=== PATIENT | male | born 1995 | race African-American/Black ===

== ENCOUNTER 2024-09-14 14:57 | Outpatient (AMB) | payer OTHER, SELFPAY ==
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
[2024-09-14 15:35] VITALS: BP 120/70; PULSE 65; RESP 16; TEMP 36.2; O2SAT 97; BMI 34.2
--- OUTSIDE RECORDS SUMMARY | 2024-09-14 16:13 | XMS_ITS ---
Author Organization [facility] Address [address] [place] [phone] Care Team Providers Care Auditor/Quality Name Role Phone No, PCP Primary Care Provider UnavailNori Serna Unavailable [phone] [facility], Nursing Unavailable [phone] REASON FOR VISIT OFFICE ; Intake Social History Sex Assigned At : Social History Observation Description Sex Assigned At Male Encounters Encounter Location Date Provider Diagnosis [address] [phone] 09/04/2024 Nursing [facility] Plan Of Treatment No Information Progress Notes * Elkin VORADOB: 1995 (29 yo M)Acc No.[id number]:09/04/2024 Progress Notes Patient:?Jonathan VORA Provider:?Mylene [facility] :1995???Age:29 Y???Sex:Male Keven e:09/04/2024 Address:[address] [place], [place] [phone] Pcp:PCP No Subjective: * Chief Complaints: * ???1. OFFICE ; Intake. * Medical History:? Objective: * Vitals:? Assessment: Plan: * Treatment: * Images: Billing Information: * Visit Code:? * Procedure Codes:? * Electronic signature of Yair [facility] on 09/14/2024 at 04:13 PM EDT Sign off status: Pending * Provider:?Provider [facility] Date:?09/04/2024 Generated for Sylvia garvey/Nahomy/eTransmitting on:?09/14/2024 04:13 PM EDT
== END 2024-09-14 16:29 | disposition home or self-care (01) ==
LOC: HO.HMCH 14:58
DX: S86.012D Strain of left Achilles tendon, subsequent encounter (principal)

== ENCOUNTER → 2024-09-14 14:57 | Outpatient (BNVA) | payer OTHER, SELFPAY | DX: S86.012D Strain of left Achilles tendon, subsequent encounter (principal); F41.9 Anxiety disorder, unspecified; X58.XXXD Exposure to other specified factors, subsequent encounter | CPT/HCPCS: 96127; 99202 ==

== ENCOUNTER 2024-11-19 09:24 | Outpatient (AMB) | payer OTHER, SELFPAY ==
--- OUTSIDE RECORDS SUMMARY | 2024-09-04 09:30 | XMS_ITS ---
Author Organization [facility] Address [address] [place] [phone] Care Team Providers Care Steam Bone Press Tender Name Role Phone NO, PCP Primary Care Provider Nori Pisano Unavailable [phone] [facility], Nursing Unavailable [phone] REASON FOR VISIT OFFICE ; Intake Social History Sex Assigned At : Social History Observation Description Sex Assigned At Male Encounters Encounter Location Date Provider Diagnosis [address] [phone] 09/04/[address] [facility] Plan Of Treatment No Information Progress Notes * Elkin VORADOB: 1995 (29 yo M)Acc No.[id number]:09/04/2024 Progress Notes Patient: Jeffrey SAWYER Elkin GRIMALDO Provider: Adrian hayes [facility] :1995 A ge:29 Y S ex:Male Date:09/04/2024 Address:[address] [place], [place] [phone] Pcp:PCP NO Subjective: * Chief Complaints: * 1 . OFFICE ; Intake. * Medical History: Objective: * Vitals: Assessment: Plan: * Treatment: * Images: Billing Information: * Visit Code: * Procedure Codes: * Electronic signature of Yair [facility] on 11/19/2024 at 09:49 AM EDT Sign off status: Pending * Provider: Adrian hayes [facility] Date: 09/04/2024 Generated for Sylvia garvey/Nahomy/eTransmsaturnino on: 0 11/19/2024 09:49 AM EDT
[2024-11-19 09:38] VITALS: BP 100/70; PULSE 66; RESP 18; TEMP 36.1; O2SAT 98; BMI 33.7
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
== END 2024-11-19 10:58 | disposition home or self-care (01) ==
DX: Z00.00 Encounter for general adult medical examination without abnormal findings (principal); S86.012D Strain of left Achilles tendon, subsequent encounter; K05.10 Chronic gingivitis, plaque induced

== ENCOUNTER → 2024-11-19 09:24 | Outpatient (BNVA) | payer OTHER, SELFPAY | DX: Z00.00 Encounter for general adult medical examination without abnormal findings (principal); K05.10 Chronic gingivitis, plaque induced; S86.012D Strain of left Achilles tendon, subsequent encounter; X58.XXXD Exposure to other specified factors, subsequent encounter; Z98.890 Other specified postprocedural states | CPT/HCPCS: 99395 ==

== ENCOUNTER 2025-03-09 17:27 | Emergency (ER) | payer OTHER, SELFPAY ==
--- OUTSIDE RECORDS SUMMARY | 2024-07-31 08:30 | XMS_ITS ---
Author Organization [facility] Address [address] [place] [phone] Care Team Providers Care Manager Client Service Name Role Phone NO, PCP Primary Care Provider [phone] Nori Pisano Unavailable [phone] [facility], Nursing Unavailable [phone] REASON FOR VISIT Office: Intake Social History Sex Assigned At : Social History Observation Description Sex Assigned At Male Encounters Encounter Location Date Provider Diagnosis [address] [phone] 07/31/2024 Nursing [facility] Plan Of Treatment No Information Progress Notes * Elkin VORADOB: 1995 (29 yo M)Acc No.[id number]:07/31/2024 Progress Notes Patient: Jeffrey SAWYER Elkin GRIMALDO Provider: Adrian hayes [facility] :1995 A ge:29 Y S ex:Male Date:07/31/2024 Address:[address] [place], [place] [id number] Pcp:PCP NO Subjective: * Chief Complaints: * 1 . Office: Intake. * Medical History: Objective: * Vitals: Assessment: Plan: * Treatment: * Images: Billing Information: * Visit Code: * Procedure Codes: * Electronic signature of Yair loving [facility] on 03/09/2025 at 07:43 PM EST Sign off status: Pending * Provider: Adrian hayes [facility] Date: 0 07/31/2024 Generated for Sylvia garvey/Nahomy/eTransmitting on: 1 05/09/2024 07:43 PM EST
--- OUTSIDE RECORDS SUMMARY | 2024-09-04 08:30 | XMS_ITS ---
Author Organization [facility] Address [address] [place] [id number] Care Team Providers Care Computer Instructor Name Role Phone NO, PCP Primary Care Provider Nori Pisano Unavailable [phone] [facility], Nursing Unavailable [phone] REASON FOR VISIT OFFICE ; Intake Social History Sex Assigned At : Social History Observation Description Sex Assigned At Male Encounters Encounter Location Date Provider Diagnosis [address] [address] 09/04/2024 Nursing [facility] Plan Of Treatment No Information Progress Notes * Elkin VORADOB: 1995 (29 yo M)Acc No.[id number]:09/04/2024 Progress Notes Patient: Jeffrey SAWYER Elkin GRIMALDO Provider: Adrian hayes [facility] :1995 A ge:29 Y S ex:Male Date:09/04/2024 Address:[address] [place], [place] [id number] Pcp:PCP NO Subjective: * Chief Complaints: * 1 . OFFICE ; Intake. * Medical History: Objective: * Vitals: Assessment: Plan: * Treatment: * Images: Billing Information: * Visit Code: * Procedure Codes: * Electronic signature of Yair [facility] on 03/09/2025 at 07:43 PM EST Sign off status: Pending * Provider: Adrian hayes [facility] Date: 0 09/04/2024 Generated for Sylvia garvey/Nahomy/eTransmitting on: 1 05/09/2024 07:43 PM EST
--- NOTE | ~2025-03-09 | XR_ITS ---
CLINICAL HISTORY: 5th finger hyperextended 3 views left 5th finger Comparison: None Findings: No fractures or dislocations. No significant arthritic change. No erosions. No radiopaque foreign body. Impression: 1. No fracture or dislocation. This document has been electronically signed by: Kin Rao MD on 03/09/2025 18:08:17
--- NOTE | 2025-03-09 17:39 | ED_ITS ---
HPI - General Adult General Chief complaint: Extremity Injury, Upper Stated complaint: ?L pinky dislocation Time Seen by Provider: 03/09/25 19:17 History of Present Illness ED Provider: Nataliia Hernandez [facility] narrative: 29-year-old male, primarily Jamaican-speaking, presents to the ED complaining of an injury to his left pinky there that occurred when he was doing chin ups. He reports that the entire finger bent backwards, and he took off a small piece of skin near the nailbed. He wants to ensure that his finger is not broken. Denies any painful range of motion, tingling or numbness in the finger. No fever, chills. No chest pain or pressure, shortness of breath or abdominal pain. Related Data Previous Rx's ?Medication ?Instructions ?Recorded acetaminophen 325 mg capsule 650 mg (2 x 325 mg) PO Q6 H PRN 09/20/24 pain #30 caps ibuprofen 600 mg tablet 600 mg PO TID PRN pain #30 t abs 09/20/24 amoxicillin 875 mg-potassium 1 tab PO BID 7 days #14 t abs 11/19/24 clavulanate 125 mg tablet Allergies Allergy/AdvReac Type Severity Reaction Status Date / Time No Known Allergies Allergy Verified 03/09/25 17:44 Review of Systems Review of Systems: ROS is otherwise negative unless mentioned in HPI. [facility] Past Medical History Surgical History History of elbow surgery Social History Social History Housing: Other ([facility]) Alcohol intake: current Alcohol intake frequency: a few times a month Patient Tobacco Use Status: Current everyday Tobacco user Tobacco use type: Cigarette Cigarette Packs Per Day: 0.25 Cigarettes Per Day: 3 e-Cigarette/Vaping Use: Never Used Second Hand Smoke Exposure: No Advance Directives: No Advance Directives Information Provided: No service: No Current occupational status: unemployed Cognitive needs: Yes (noam) Hearing needs: No Vision needs: No Physical Exam ED Exam Exam: Nursing notes and vital signs reviewed. Constitutional: Well-appearing, NAD. Alert. Oriented X3. ENT: Pharynx normal. Neck: Normal inspection. Neck supple. CVS: Pulses normal. Respiratory: No respiratory distress. Skin: Skin warm and dry. Normal skin color. Skin avulsion to left pinkie finger. Brisk capillary refill. Extremities: No lower extremity edema. Neuro: Oriented X 3. No motor deficit. Vital Signs: Vital Signs - 24 hr 03/09/25 17:43 03/09/25 20:01 Temperature 97.6 F 0 F L Pulse Rate 76 78 Respiratory Rate 18 18 Blood Pressure 118/82 102/65 Pulse Oximetry 98 98 Oxygen Delivery Method Room Air Room Air BMI result Body Mass Index 33.5 Course Course Course Narrative: This is a rapid medical exam performed by Luis Pendleton NP: Additional HPI, ROS, PE not included below will be deferred to primary provider. Patient is a 29 year old male presenting to the ED with complaint of left 5th finger pain. Was doing chin-ups and slipped, hyperexending and twisting his finger. Superficial skin avulsion to distal finger. Tdap not UTD. Plan: xray, Tdap Medical Decision Making Medical Decision Making MDM Narrative: Upon assessment, he appears well. There is a very minor skin avulsion to the pinky. Range of motion is intact. The x-ray shows no acute fracture, dislocation. However what he describes to me is that his entire finger bent backwards, he tugged on it, and it went back into place. I do have concern that he may have dislocated his finger and then relocated it prior to the ED. Therefore, I ordered for the patient to be placed in a finger splint and have him follow up outpatient with Orthopedics. CSM is intact, 2+ pulses. He is agreeable to plan of care. Instructions for [id number] Tylenol use provided. Return precautions discussed. Differential Diagnosis Differential Diagnoses: The differential diagnosis associated with the presentation includes Extra, dislocation, sprain Admission/Observation Consideration of admission/observation: Escalation of care including admission/observation considered (Not indicated) Independent Interpretation I performed an independent interpretation of an: Plain X-Ray Interpretation: I have reviewed the patient's imaging and agree with the radiologist's findings. Radiology Impression Discussion of test interpretation with radiology: I have reviewed the radiologist's reading. Radiologist Impression: Impression: 1. No fracture or dislocation. Independent Historian Clinical information obtained from an independent historian. History obtained from or confirmed by: Friend (at bedside) External Record Review None Social Determinants Patient?s care significantly limited by Social Determinants of Health including: Problems related to primary support group Discharge Plan Discharge Clinical Impression: Finger injury Qualifiers: Encounter type: initial encounter Laterality: left Qualified Code(s): S69.92XA - Unspecified injury of left wrist, hand and finger(s), initial encounter Patient Disposition: Home, Self-Care Instructions: Finger Sprain (ED) Additional Instructions: As we discussed, the x-ray shows no acute fracture. We placed you in a finger splint that can be worn for the next 1-2 days for pain. With any worsening complaints at any time, return to the ED for reassessment. Prescriptions: No Action ibuprofen 600 mg tablet 600 mg PO TID PRN (Reason: pain) Qty: 30 3RF acetaminophen 325 mg capsule 650 mg PO Q6H PRN (Reason: pain) Qty: 30 3RF amoxicillin-pot clavulanate 875-125 mg tablet 1 tab PO BID 7 Days Qty: 14 0RF Referrals: [facility] [Primary Care Provider, Medical] Interventions: ED Discharge Assessment Last Done: 03/09/25 20:01 Discharge Date/Time: 03/09/25 20:02 Print Language: Jamaican
[2025-03-09 17:43] VITALS: BP 118/82; PULSE 76; RESP 18; TEMP 36.4; O2SAT 98; BMI 33.5
--- OUTSIDE RECORDS SUMMARY | 2025-03-09 19:44 | XMS_ITS | Clinical Summary ---
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 Name Role Phone Unavailable Primary Care Provider Unavailabl e Allergies No known active allergies Medications No known medications Active Problems Problem Noted Date Diagnosed Date Dental abscess 01/25/2025 Dental caries 01/25/2025 Dental calculus 01/25/2025 Gingival bleeding 01/25/2025 Periodontal disease 01/25/2025 Encounters Date Type Department Care Team Description 03/01/2025 Telephone [facility] [address] [place] [address] Ivan Dunn DDS 02/03/2025 2:30 PM EDT Office Visit [facility] [address] [place] [address] Zakhary, Ilir Caries (Primary Dx) 01/29/2025 3:00 PM EDT Office Visit [facility] [address] [place] [address] Alberto, Arlyn Dental calculus (Primary Dx); Periodontal disease 01/27/2025 Telephone [facility] [address] [place] [address] Ivan Dunn DDS 01/26/2025 11:00 AM EDT Office Visit [facility] [address] [place] [address] Alberto, Arlyn Dental calculus (Primary Dx); Gingival bleeding; Periodontal disease 01/25/2025 3:00 PM EDT Office Visit [facility] [address] [place] [address] Alberto, Arlyn Dental abscess (Primary Dx); Dental caries; Dental calculus; Gingival bleeding; Periodontal disease 01/14/2025 Telephone [facility] [address] [place] [address] Ivan Dunn DDS 12/29/2024 Telephone [facility] [address] [place] [address] Ivan Dunn DDS 12/23/2024 Telephone [facility] [address] [place] [address] Ivan Dunn DDS from Last 3 Months Social History Tobacco Use Types Packs/Day Years Used Date Smoking Tobacco: Every Day Cigarettes Smokeless Tobacco: Never Tobacco Cessation:Ready to Q uit: Not Asked; Counseling Given: Not Answered Alcohol Use Standard Drinks/Week Comments Never 0 (1 standard drink = 0.6 oz pur e alcohol) Sex and Gender Information Value Date Recorded Sex Assigned at Male 11/19/2024 8:19 AM EDT Legal Sex Male 8:15 AM EDT Gender Identity Male 11/19/2024 8:19 AM EDT Sexual Orientation Straight 11/19/2024 8: 19 AM EDT Last Filed Vital Signs Vital Sign Reading Time Taken Comments Blood Pressure 110/80 02/03/2025 2:51 PM EDT Pulse - - Temperature - - Respiratory Rate - - Oxygen Saturation - - Inhaled Oxygen Concentration - - Weight - - Height - - Body Mass Index - - Plan of Treatment Upcoming Encounters Date Type Department Care Team (Late st Contact Info) Description 07/05/2025 2:15 PM EDT Office Visit [facility] [address] [place] [address] Arlyn Dominguez [address] [place] [address] Health Maintenance Due Date Last Done Comments Depression Screening 1995 HIV Screening 1995 Lipid Panel 1995 SDOH Screening 1995 Disability Screening 1995 Alcohol/Substance Use Screening 2007 Family Planning (PISQ) 2010 HPV Vaccines (1 - Male 3-dos e series) 2010 Hepatitis C Screening 2013 DTaP/Tdap/Td Vaccines (1 - Tdap) 2014 Hepatitis B Vaccines (1 of 3 - 19+ 3-dose series) 2014 Pneumococcal Vaccine: Pediatrics (0 to 5 Years) and At-Risk Patients (6 to 49) Years (1 of 2 - PCV) 2014 COVID-19 Vaccine ( - 2024-2 6 season) 2024 Influenza Vaccine (#1) 2024 Dental Oral Exam 05/30/2025 11/26/2024 Dental Prophylaxis 05/30/2025 11/26/2024 Dental X-Ray: Bitewings 11/27/2025 11/27/19 25, 11/19/2024 Tobacco Screening 02/03/2026 02/03/2025 Dental X-Ray: Full Mouth 11/28/2027 11/26/2024 Zoster Vaccines (1 of 2) 2045 RSV Patients and Patients Aged 60 years or older (1 - 1-dose 75+ series) 2070 HIB Vaccines Aged Out No longer eligi ble based on patient's age to complete this topic Hepatitis A Vaccines Aged Out No long er eligible based on patient's age to complete this topic IPV Vaccines Aged Out No longer eligi ble based on patient's age to complete this topic Meningococcal B Vaccine Aged Out No l onger eligible based on patient's age to complete this topic Meningococcal Vaccine Aged Out No matt jitendra eligible based on patient's age to complete this topic RSV under 20 months Aged Out No longe r eligible based on patient's age to complete this topic Rotavirus Vaccines Aged Out No longer eligible based on patient's age to complete this topic Procedures Procedure Name Priority Date/Time Associated Diagnosis Comments 18 MO RESIN-BASED COMPOSITE - 2 SURF, POSTERIOR Routine 02/03/2025 2:30 PM EDT Caries LR PERIODONTAL SCALING AND ROOT PLANING - 4 OR MORE TEETH PER QUADRANT Routine 01/29/2025 3:00 PM EDT Dental calculus Periodontal disease UR PERIODONTAL SCALING AND ROOT PLANING - 4 OR MORE TEETH PER QUADRANT Routine 01/29/2025 3:00 PM EDT Dental calculus Periodontal disease CASE PRESENTATION, DETAILED AND EXTENSIVE TREATMENT PLANNING Routine 01/29/2025 3:00 PM EDT Dental calculus Periodontal disease CASE PRESENTATION, DETAILED AND EXTENSIVE TREATMENT PLANNING Routine 01/26/2025 11:00 AM EDT Dental calculus Gingival bleeding Periodontal disease UL PERIODONTAL SCALING AND ROOT PLANING - 4 OR MORE TEETH PER QUADRANT Routine 01/26/2025 11:00 AM EDT Dental calculus Gingival bleeding Periodontal disease CASE PRESENTATION, DETAILED AND EXTENSIVE TREATMENT PLANNING Routine 01/25/2025 3:00 PM EDT Dental calculus Gingival bleeding Periodontal disease LL PERIODONTAL SCALING AND ROOT PLANING - 4 OR MORE TEETH PER QUADRANT Routine 01/25/2025 3:00 PM EDT Dental calculus Gingival bleeding Periodontal disease PROPHYLAXIS - ADULT Routine 11/26/2024 8 :00 AM EDT INTRAORAL - COMPLETE SERIES OF RADIOGRAPHIC IMAGES Routine 11/26/2024 8:00 AM EDT COMPREHENSIVE ORAL EVALUATION - NEW OR ESTABLISHED PATIENT Routine 11/26/2024 8:00 AM EDT Encounter for dental examination from Last 3 Months or Most Recently Relevant to Health Maintenance Insurance [facility] MEDICAID STAND ADULT
--- OUTSIDE RECORDS SUMMARY | 2025-03-09 19:44 | XMS_ITS | Patient Health Record ---
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 Name Role Phone NO, PCP Primary Care Provider [phone] Nori Pisano Unavailable [phone] [facility], Nursing Unavailable [phone] [facility], CHW Unavailable [phone] Reason For Referral No Information Social History Sex Assigned At : Social History Observation Description Sex Assigned At Male Problems Problem Type SNOMED Code ICD Code Onset Dates Problem Status W/U Status Risk Notes Problem Sheltered homelessness (717250798785269 ) Sheltered homelessness (Z59.01) Active confirmed Encounters Encounter Location Date Provider Diagnosis [address] [phone] 07/07/[address] [address] 07/10/[address] [address] 07/07/2024 [facility] [address] [place] [phone] 07/13/2024 Nori Pisano [address] [phone] 06/30/2024 Nori Pisano [address] [address] 08/28/2024 Nori Pisano Plan Of Treatment No Information Insurance Providers Payer Name Payer Address Payer Phone Subscriber Number Group Number Insured Name Patient Relationship to Insured Coverage Start Date Coverage End Date [employer] [place] [employer] [address] [place] [address] [id number] Elkin Vora Self - patient is the insured
[2025-03-09 20:01] VITALS: BP 102/65; PULSE 78; RESP 18; TEMP -17.7; TEMP 0; O2SAT 98
== END 2025-03-09 20:02 | disposition home or self-care (01) ==
PROVIDERS: Emergency Provider Student in an Organized Health Care Education/Training Program
DX: S69.92XA Unspecified injury of left wrist, hand and finger(s), initial encounter (principal); X50.1XXA Overexertion from prolonged static or awkward postures, initial encounter; Y93.B2 Activity, push-ups, pull-ups, sit-ups; Y92.9 Unspecified place or not applicable; Y99.9 Unspecified external cause status
CPT/HCPCS: 73140; 99282; 99283

== ENCOUNTER → 2025-03-09 17:47 | Outpatient (BNV) | payer OTHER, SELFPAY | PROVIDERS: Visit Provider Radiology Diagnostic Radiology | DX: S69.80XA Other specified injuries of unspecified wrist, hand and finger(s), initial encounter (principal) | CPT/HCPCS: 73140 ==